=== PATIENT | male | born 1970 | race Caucasian/White ===

== ENCOUNTER 2020-11-12 17:07 | Emergency (ER) | payer BC ==
--- OUTSIDE RECORDS SUMMARY | 2020-11-12 17:11 | XMS REPORT | Continuity of Care Document ---
:1970 Author Organization [facility] t Address [address] [place] [address] Care Team Providers Name Role Phone Richar CALDERON Primary Care Physician Problems Condition Condition Condition Status Onset Resolution Last Treating Co mments Source Name Details Category Date Date Treatment Clinician Date Gastroesop Gastroesop Disease Active M ethodi hageal hageal 06-20 st reflux reflux 00:00: Hospita disease disease 00 l Dyspepsia Dyspepsia Disease Active [facility]osp[facility] 00 l Internal Internal Disease Active [facility] hemorrhoid hemorrhoid 06-20 st s s 00:00: Hospita 00 l Hematochez Hematochez Disease Active 2015-03 M ethodi ia ia 04-10 st 00:00: Hospita 00 l Dysphagia Dysphagia Disease Active 2015-03 [facility]10 [facility] 00:00: Hospita 00 l Allergies, Adverse Reactions, Alerts This patient has no known allergies or adverse reactions. Family History Family Member Diagnosis Comments Start Date Stop Date Source Natural father Alzheimer's disease [facility] Natural mother COPD Natural mother Hypertension [facility] Natural mother Throat cancer [facility] Social History Social Habit Start Date Stop Date Quantity Comments Source History of Snuff User [facility] Alcohol intake 2018-05-11 2018-05-11 Current drinker [facility] 00:[facility]00 [facility] Hospital (finding) Tobacco use and 2018-05-11 2018-05-11 Former user [facility] 00:[facility]:00 Hospital Alcohol Comment 2018-05-09 2018-05-[address] Sex Assigned At [birth year] [facility] 00:[facility]00 [facility] Smoking Status Start Date Stop Date Source Former smoker 2018-05-11 00:00:00 2018-05-11 00:00:00 [facility] Medications Ordered Filled Start Stop Current Ordering Indication Dosage Frequency Signature Comments Components Source Medication Medication Date Date Medication? Clinician (SIG) Name Name azelastine Yes 1{spray Q.5D 1 spray M ethodi (ASTELIN) 2 } into each st 137 mcg 02:59: nostril 2 Hospi ta (0.1 %) 20 (two) l nasal spray times a day. Use in each nostril as directed MV-MN/VITC/ Yes Take by [facility] ASBNA/GLU/L 2-[address] YS/HC124 02:59: needed. Hospit a ([place], 20 l ASCORBATE SODIUM, ORAL) Procedures This patient has no known procedures. Plan of Care Planned Activity Planned Date Details Comments Source Future Scheduled Test COVID-19 VACCINE (1) [code = COVID-19 VACCINE (1)] Future Scheduled Test Hepatitis C screening (procedure) [code = 076884927] Future Scheduled Test COLONOSCOPY SCREENING [code = COLONOSCOPY SCREENING] Future Scheduled Test SHINGLES VACCINES (#1) [code = SHINGLES VACCINES (#1)] Future Scheduled Test INFLUENZA VACCINE [code = INFLUENZA VACCINE] Encounters Start End Encounter Admission Attending Care Care Encounter Source Date/Time Date/Time Type Type Clinicians Facility Department ID 2020-10-31 2020-10-31 Outpatient [facility] [id number] [facility] Results This patient has no known results.
--- NOTE | 2020-11-12 19:07 | RAD REPORT ---
EXAM DESCRIPTION: RAD - Chest Single View - 11/12/2020 6:50 pm CLINICAL HISTORY: SOB, recent positive COVID diagnosis COMPARISON: None TECHNIQUE: AP portable chest image was obtained 11/12/2020 6:50 pm . FINDINGS: Lung parenchyma within range of normal. No COVID-19 pneumonia findings evident. Heart and vasculature are normal. No measurable pleural effusion and no pneumothorax. No acute bony abnormality seen. No acute aortic findings suspected. IMPRESSION: No acute cardiopulmonary process.
--- NOTE | 2020-11-12 19:57 | ER ---
Nurse's Notes [facility] Name: Jose Ortiz Age: 50 yrs Sex: Male : 1970 Arrival Date: 11/12/2020 Time: 17:10 Bed 25 Private MD: Max Maradiaga Diagnosis: SARS-associated coronavirus as the cause of diseases classified elsewhere Presentation: 11/12 18:08 Chief complaint: Patient states: "I called my doctor and told them I have been having a ss hard time breathing and a headache." Pt reports a positive COVID test on 11/03. Coronavirus screen: Client denies travel out of the [place] in the last 14 days. Ebola Screen: Patient denies exposure to infectious person. Patient denies travel to an Ebola-affected area in the 21 days before illness onset. Initial Sepsis Screen: Does the patient meet any 2 criteria? No. Patient's initial sepsis screen is negative. Does the patient have a suspected source of infection? No. Patient's initial sepsis screen is negative. Risk Assessment: Do you want to hurt yourself or someone else? Patient reports no desire to harm self or others. Onset of symptoms was October 2020. 18:08 Method Of Arrival: Ambulatory ss 18:08 Acuity: JODIE 4 ss Triage Assessment: 19:56 General: Appears in no apparent distress. Behavior is calm, cooperative, appropriate lh3 for age. Pain: Denies pain. Respiratory: Reports shortness of breath at rest Onset: The symptoms/episode began/occurred at an unknown time. the patient has moderate shortness of breath. Historical: - Allergies: 18:17 No Known Allergies; ss - Immunization history:: Client reports having NOT received the Covid vaccine. - Social history:: Smoking status: Patient denies any tobacco usage or history of. Screenin:57 Abuse screen: Denies threats or abuse. Nutritional screening: No deficits noted. lh3 Tuberculosis screening: No symptoms or risk factors identified. Fall Risk None identified. Assessment: 19:57 Reassessment: Patient appears in no apparent distress at this time. Cardiovascular: lh3 Rhythm is regular. Respiratory: Airway is patent Respiratory effort is even, unlabored, Breath sounds are clear. Vital Signs: 18:08 Pulse 70; Resp 16; Temp 97.8(TE); Pulse Ox 97% ; Weight 122.47 kg; Height 5 ft. 7 in. (170.18 cm); Pain 8/10; 19:56 BP 136 / 79; Pulse 68; Resp 18; Temp 98; Pulse Ox 98% ; lh3 18:08 Body Mass Index 42.29 (122.47 kg, 170.18 cm) ED Course: 17:10 Patient arrived in ED. mr 17:10 Max Maradiaga DO is Private Physician. mr 18:10 Triage completed. 18:17 Arm band placed on right wrist. 18:51 XRAY Chest (1 view) In Process Unspecified. EDMS 19:37 Jackie Maradiaga is Attending Physician. sp3 19:44 Radha Fonseca, RN is Primary Nurse. 3 19:57 Patient has correct armband on for positive identification. Bed in low position. Call 3 light in reach. 19:57 No provider procedures requiring assistance completed. Patient did not have IV access lh3 during this emergency room visit. Administered Medications: No medications were administered Outcome: 19:56 Discharge ordered by MD. 3 20:23 Discharged to home ambulatory. 3 20:23 Condition: stable 20:23 Discharge instructions given to patient, Instructed on discharge instructions, Demonstrated understanding of instructions, follow-up care. 20:23 Patient left the ED. 3 Signatures: Dispatcher [employer] [facility] Cherry Santos [place], RN RN Jackie Maradiaga sp3 Radha Fonseca, STU RN 3
--- NOTE | 2020-11-12 19:57 | EDPHYS ---
Physician Documentation [facility] Name: Jose Ortiz Age: 50 yrs Sex: Male : 1970 Arrival Date: 11/12/2020 Time: 17:10 Bed 25 Private MD: [facility] ED Physician Jackie Maradiaga HPI: 11/12 19:52 This 50 yrs old Male presents to ER via Ambulatory with complaints of sp3 Breathing Difficulty. 19:52 50-year-old male with COVID-19 diagnosed initially in early October with repeat testing sp3 done on the which still demonstrates positive result now comes in for continued mild difficulty breathing, generalized body aches, and fatigue. Patient was sent by his PCP for chest x-ray and general evaluation. Patient has not been vaccinated. No other symptoms including chest pain, neck pain, vomiting, diarrhea, fever, productive cough, syncope, near syncope, neuro symptoms, bleeding, rash, any other ROS at this time. Patient uses a CPAP machine at home and states that despite that he occasionally still has some breathing difficulty.. Historical: - Allergies: 18:17 No Known Allergies; ss - Immunization history:: Client reports having NOT received the Covid vaccine. - Social history:: Smoking status: Patient denies any tobacco usage or history of. ROS: 19:54 Eyes: Negative for injury, pain, redness, and discharge, ENT: Negative for injury, sp3 pain, and discharge, Neck: Negative for injury, pain, and swelling, Cardiovascular: Negative for chest pain, palpitations, and edema, Abdomen/GI: Negative for abdominal pain, nausea, vomiting, diarrhea, and constipation, Back: Negative for injury and pain, Skin: Negative for injury, rash, and discoloration, Neuro: Negative for headache, weakness, numbness, tingling, and seizure, Endocrine: Negative for neck swelling, polydipsia, polyuria, polyphagia, and marked weight changes, Hematologic/Lymphatic: Negative for swollen nodes, abnormal bleeding, and unusual bruising. 19:54 Constitutional: Positive for fatigue, Negative for chills, fever, poor PO intake, weight loss. 19:54 Respiratory: Positive for shortness of breath, Negative for cough, pleurisy, wheezing. 19:54 All other systems are negative. 19:54 All other systems are negative. Exam: 19:54 Constitutional: This is a well developed, well nourished patient who is awake, alert, sp3 and in no acute distress. Head/Face: Normocephalic, atraumatic. Eyes: Pupils equal round and reactive to light, extra-ocular motions intact. Lids and lashes normal. Conjunctiva and sclera are non-icteric and not injected. Cornea within normal limits. Periorbital areas with no swelling, redness, or edema. ENT: Nares patent. No nasal discharge, no septal abnormalities noted. External auditory canals are clear. Oropharynx with no redness, swelling, or masses, exudates, or evidence of obstruction, uvula midline. Mucous membranes moist. Neck: Trachea midline, no thyromegaly or masses palpated, and no cervical lymphadenopathy. Supple, full range of motion without nuchal rigidity, or vertebral point tenderness. No Meningismus. Chest/axilla: Normal chest wall appearance and motion. Nontender with no deformity. No lesions are appreciated. Cardiovascular: Regular rate and rhythm with a normal S1 and S2. No gallops, murmurs, or rubs. Normal PMI, no JVD. No pulse deficits. Respiratory: Lungs have equal breath sounds bilaterally, clear to auscultation and percussion. No rales, rhonchi or wheezes noted. No increased work of breathing, no retractions or nasal flaring. Abdomen/GI: Soft, non-tender, with normal bowel sounds. No distension or tympany. No guarding or rebound. No evidence of tenderness throughout. Back: No spinal tenderness. No costovertebral tenderness. Full range of motion. MS/ Extremity: Pulses equal, no cyanosis. Neurovascular intact. Full, normal range of motion. Neuro: Awake and alert, GCS 15, oriented to person, place, time, and situation. Cranial nerves II-XII grossly intact. Motor strength 5/5 in all extremities. Sensory grossly intact. Cerebellar exam normal. Normal gait. Psych: Awake, alert, with orientation to person, place and time. Behavior, mood, and affect are within normal limits. Vital Signs: 18:08 Pulse 70; Resp 16; Temp 97.8(TE); Pulse Ox 97% ; Weight 122.47 kg; Height 5 ft. 7 in. ss (170.18 cm); Pain 8/10; 19:56 BP 136 / 79; Pulse 68; Resp 18; Temp 98; Pulse Ox 98% ; lh3 18:08 Body Mass Index 42.29 (122.47 kg, 170.18 cm) ss MDM: 19:52 Patient medically screened. sp3 19:55 ED course: 50-year-old male with continued symptoms of COVID-19. Patient's chest x-ray sp3 demonstrates no acute abnormality. Pulse oxygenation level is 97% on room air and remainder of vital signs are normal. No further work-up is necessary and I reassured patient on continuing to stay isolated and monitoring his own symptoms. He is to follow-up with his primary care physician for any further continued deterioration and/or symptoms and he knows to return here for any further emergencies. Patient is stable for discharge at this time.. 11/12 18:18 Order name: XRAY Chest (1 view); Complete Time: 19:38 ss Administered Medications: No medications were administered Disposition Summary: 11/12/20 19:56 Discharge Ordered Location: Home sp3 Condition: Stable sp3 Diagnosis - SARS-associated coronavirus as the cause of diseases classified elsewhere sp3 Followup: sp3 - With: Private Physician - When: - Reason: Re-evaluation by your physician Discharge Instructions: - Discharge Summary Sheet sp3 - COVID-19 sp3 - 10 Things You Can Do to Manage Your COVID-19 Symptoms at Home - [facility] sp3 Forms: - Medication Reconciliation Form sp3 - Thank You Letter sp3 - Antibiotic Education sp3 - Prescription Opioid Use sp3 Signatures: Dispatcher [employer] Iza Guerra RN RN Jackie Maradiaga sp3
[2020-11-12 20:41] VITALS: BP 136/79; TEMP 98; O2SAT 98
== END 2020-11-12 20:23 | disposition home or self-care (01) ==
LOC: ER 17:07
DX: U07.1 COVID-19 (principal)
CPT/HCPCS: 71045; 99283

== ENCOUNTER 2021-06-20 06:36 | Emergency (ER) | payer BC ==
--- OUTSIDE RECORDS SUMMARY | 2021-06-20 06:40 | XMS REPORT | Continuity of Care Document ---
:1970 Author Organization [facility] t Address [address] [place] [address] Care Team Providers Name Role Phone Richar CALDERON Primary Care Physician Nereyda Maradiaga Attending Clinician Unavailable Problems Condition Condition Condition Status Onset Resolution [...] Comments Start Date Stop Date Source Natural mother COPD [facility] Natural mother Hypertension [facility] Natural mother Throat cancer [facility] Natural father Alzheimer's disease [facility] Social History Social Habit Start Date Stop Date Quantity Comments Source History of Snuff User [facility] tobacco use [facility] Tobacco use and 2018-05-11 2018-05-11 Former user [facility] exposure 00:00[facility]:00:00 Hospital Alcohol intake 2018-05-11 2018-05-11 Current drinker [facility] 00:[facility]:00 of alcohol Hospital (finding) Alcohol Comment 2018-05-09 2018-05-[address] [facility] 00:[facility]00 Hospital Sex Assigned At [birth year] [facility] 00:00:[facility]:00 Hospital Smoking Status Start Date Stop Date Source Former smoker 2018-05-11 00:00:00 2018-05-11 00:00:00 [facility] Medications Ordered Filled Start Stop Current Ordering Indication Dosage Frequency Signature Comments Components Source Medication Medication Date Date Medication? Clinician (SIG) Name Name JANINE-MN/VITC/ Yes Take by [facility] ASBNA/GLU/L 2-[address] YS/HC124 02:59: needed. Hospit a ([place], 20 l ASCORBATE SODIUM, ORAL) azelastine Yes 1{spray Q.5D 1 spray M ethodi (ASTELIN) 05-10 } into each st 137 mcg 02:59: nostril 2 Hospi ta (0.1 %) 20 (two) l nasal spray times a day. Use in each nostril as directed Procedures This patient has no known procedures. Plan of Care Planned Activity Planned Date Details Comments Source Future Scheduled Test COVID-19 VACCINE (1) [facility] [code = COVID-19 VACCINE (1)] Future Scheduled Test Hepatitis C screening [facility] (procedure) [code = 263933979] Future Scheduled Test COLONOSCOPY SCREENING [facility] [code = COLONOSCOPY SCREENING] Future Scheduled Test SHINGLES VACCINES (#1) [facility] [code = SHINGLES VACCINES (#1)] Future Scheduled Test INFLUENZA VACCINE [code [facility] = INFLUENZA VACCINE] Encounters Start End Encounter Admission Attending Care Care Encounter Source Date/Time Date/Time Type Type Clinicians Facility Department ID 2021-04-22 Outpatient Maradiaga, [facility] [id number] [facility] 14:21:21 Max [id number] [facility] 2021-04-22 Outpatient Maradiaga, [facility] [id number] [facility] [address] 14:04:30 Max [id number] [facility] 2021-04-22 Outpatient Maradiaga, [facility] [id number] 13:36:15 [facility] 2021-04-22 Outpatient Maradiaga, [facility] [id number] 13:35:29 [facility] 2021-04-22 Outpatient Maradiaga, [facility] [id number] 13:34:33 [facility] 2021-04-22 Outpatient Maradiaga, [facility] 13[facility]32:49 [facility] 2021-05-28 2021-05-28 ambulatory [facility] [id number] [facility] 2021-05-27 2021-05-27 ambulatory [facility] [id number] [facility] 2021-05-27 2021-05-27 ambulatory [facility] [id number] [facility] 2021-02-27 2021-02-27 ambulatory [facility] [id number] [facility] 2021-02-27 2021-02-27 ambulatory [facility] [id number] [facility] 2021-01-19 2021-01-19 Outpatient [facility] [id number] [facility] 2020-10-31 2020-10-31 Outpatient [facility] [id number] [facility] Results This patient has no known results.
[2021-06-20] MEDS ORDERED: GLUCAGON 1 MG/VIAL ONE ×2 (07:31→08:17)
[2021-06-20] MEDS ORDERED: NA CHLORIDE 0.9% 500 ML ONE (07:31)
[2021-06-20 08:58] LABS: Absolute Lymphocytes (CBC) 1.8 K/uL (0.7-4.9); Hematocrit 49.6 % (39.6-49.0); Lymphocytes % 18.6 % (15.3-44.8); MPV 8.4 fL (7.6-11.3); RBC Red Blood Cell Count 5.57 M/uL (4.33-5.43)
--- NOTE | 2021-06-20 09:13 | RAD REPORT ---
EXAM DESCRIPTION: RAD - Chest Pa And Lat (2 Views) - 06/20/2021 8:44 am CLINICAL HISTORY: Dysphagia COMPARISON: <Comparisons> FINDINGS: Lines: None. Lungs: No evidence of edema or pneumonia. Pleural: No significant pleural effusions or pneumothorax. Cardiac: The heart size is within normal limits. Bones: No acute fractures. Other: IMPRESSION: No acute cardiopulmonary disease.
--- NOTE | 2021-06-20 09:36 | EDPHYS ---
Physician Documentation [facility] Name: Jose Ortiz Age: 50 yrs Sex: Male : 1970 Arrival Date: 06/20/2021 Time: 06:40 Bed 4 Private MD: ED Physician Shabbir Garcia HPI: 06/20 07:01 This 50 yrs old Male presents to ER via Ambulatory with complaints of Foreign Body In pm1 Throat. 07:01 The patient presents with difficulty swallowing food and water. Onset: The pm1 symptoms/episode began/occurred last night, at 20:00. Associated signs and symptoms: Pertinent negatives: chest pain, shortness of breath. Modifying factors: The symptoms are alleviated by nothing, the symptoms are aggravated by drinking water. The patient has experienced similar episodes in the past, a few times, Has had endoscopy in the past 2014 for the same issue that did not find any abnormalities. The patient has not recently seen a physician. Patient with onset of difficulty swallowing food and water since 1999 last night. Started after he ate pork for dinner. Patient has difficulty in the past with meats and tries to cut it into small pieces or chew his meat very well prior to swallowing. Since last night he reports difficulty with drinking water, since it feels like it is stuck there and causes him to vomit. Historical: - Allergies: 06:59 No Known Allergies; bb - Home Meds: 06:59 anastrozole oral [Active]; clomiphene citrate oral [Active]; bb - PMHx: 06:59 low testosterone; bb - PSHx: 06:59 Cholecystectomy; bb - Immunization history:: Client reports having NOT received the Covid vaccine. - Social history:: Smoking status: Patient denies any tobacco usage or history of. ROS: 07:01 Constitutional: Negative for fever, chills, and weight loss, Cardiovascular: Negative pm1 for chest pain, palpitations, and edema, Respiratory: Negative for shortness of breath, cough, wheezing, and pleuritic chest pain. 07:01 Back: Negative for injury and pain, MS/Extremity: Negative for injury and deformity, Skin: Negative for injury, rash, and discoloration, Neuro: Negative for headache, weakness, numbness, tingling, and seizure. 07:01 ENT: Positive for difficulty swallowing, foreign body sensation, Negative for difficulty handling secretions. 07:01 Abdomen/GI: Positive for vomiting, with PO intake of fluids, Negative for abdominal pain. 07:01 All other systems are negative. Exam: 07:01 Constitutional: This is a well developed, well nourished patient who is awake, alert, pm1 and in no acute distress. Head/Face: Normocephalic, atraumatic. 07:01 Back: No spinal tenderness. No costovertebral tenderness. Full range of motion. Skin: Warm, dry with normal turgor. Normal color with no rashes, no lesions, and no evidence of cellulitis. MS/ Extremity: Pulses equal, no cyanosis. Neurovascular intact. Full, normal range of motion. 07:01 Eyes: Exam is negative for acute changes, Extraocular movements: intact throughout, Conjunctiva: no acute changes, no injection, Sclera: no acute changes, icterus, is not appreciated. 07:01 ENT: Exam is negative for acute changes, Mouth: no acute changes, Lips: normal, moist, Oral mucosa: normal, pink and intact, moist, Posterior pharynx: no acute changes, Airway: no evidence of obstruction, patent. 07:01 Neck: Exam negative for acute changes, ROM/movement: no acute changes. 07:01 Chest/axilla: Inspection: no acute changes, Palpation: no acute changes. 07:01 Cardiovascular: Exam negative for acute changes, Rate: normal, Rhythm: regular, Pulses: no pulse deficits are appreciated, Heart sounds: normal. 07:01 Respiratory: Exam negative for acute changes, the patient does not display signs of respiratory distress, Respirations: no acute changes, Breath sounds: are clear throughout, no acute changes. 07:01 Abdomen/GI: Inspection: obese Palpation: abdomen is soft and non-tender, in all quadrants. 07:01 Neuro: Exam negative for acute changes, Orientation: is normal, Mentation: is normal, Motor: is normal, moves all fours. Vital Signs: 06:56 BP 141 / 89; Pulse 69; Resp 16 S; Temp 98.9(O); Pulse Ox 93% on R/A; Weight 127.01 kg bb (R); Height 5 ft. 7 in. (170.18 cm) (R); Pain 8/10; 08:06 BP 100 / 56; Pulse 78; Resp 18; Pulse Ox 99% ; Pain 3/10; jh6 09:00 BP 96 / 60; Pulse 70; Resp 17; Pulse Ox 100% ; Pain 2/10; jh6 10:17 BP 98 / 64; Pulse 74; Resp 18; Pulse Ox 99% ; Pain 3/10; jh6 11:00 BP 134 / 79; Pulse 50; Resp 17; Pulse Ox 100% ; Pain 0/10; jh6 12:30 BP 123 / 70; Pulse 48; Resp 17; Temp 98.6(O); Pulse Ox 100% ; Pain 2/10; jh6 12:50 BP 118 / 57; Pulse 50; Resp 18; Pulse Ox 99% ; Pain 2/10; jh6 06:56 Body Mass Index 43.85 (127.01 kg, 170.18 cm) bb MDM: 06:52 Patient medically screened. pm1 08:40 Data reviewed: vital signs. Data interpreted: Pulse oximetry: on room air is 99 %. pm1 Interpretation: normal. 09:24 Physician consultation: Tapan Clark MD He is not on-call. No answer. Left message to pm1 see if he is available to help . 09:26 Physician consultation: Eloy Hager MD He is not on-call. Phone is not accepting any pm1 phone calls at the moment . 12:00 Physician consultation: MD GROVER was contacted at 12:01, regarding regarding transfer, pm1 patient's condition, and will see patient as consult, admit to the hospitalist. 06/20 08:35 Order name: CBC with Diff; Complete Time: 09:11 pm1 06/20 08:35 Order name: CMP; Complete Time: 09:50 pm1 06/20 08:06 Order name: Chest Pa And Lat (2 Views) XRAY; Complete Time: 09:16 pm1 06/20 09:04 Order name: COVID-19 SARS RT PCR (Document "Date of Onset" if Symptomatic); Complete iw Time: 10:02 06/20 06:55 Order name: IV Saline Lock; Complete Time: 07:37 pm1 06/20 12:07 Order name: Vital Signs pm1 Administered Medications: 07:37 Drug: Glucagon 1 mg Route: IVP; Site: left antecubital; [facility] 08:17 Follow up: Response: No change in condition [facility] 10:20 Follow up: Response: No change in condition [facility] 10:20 Follow up: Response: No change in condition [facility] 07:37 Drug: NS 0.9% 500 ml Route: IV; Rate: bolus; Site: left antecubital; [facility] 08:17 Drug: GlucaGen (glucagon) 1 mg Route: IVP; Site: left antecubital; [facility] 11:10 Drug: NS 0.9% 1000 ml Route: IV; Rate: 125 ml/hr; Site: left antecubital; [facility] 12:07 Drug: Magnesium Sulfate 1 grams Route: IVPB; Infused Over: 1 hrs; Site: left [facility] antecubital; Disposition Summary: 06/20/21 09:35 Transfer Ordered Transfer Location: Other Acute Care Facility pm1 Reason: Higher level of care pm1 Condition: Stable pm1 Problem: new pm1 Symptoms: have improved pm1 Accepting Physician: (06/20/21 13:37) jh6 Diagnosis - Dysphagia - foreign body in throat - food bolus pm1 Forms: - Medication Reconciliation Form pm1 - SBAR form pm1 Addendum: 06/23/2021 22:01 Co-signature as Attending Physician, Shabbir Garcia DO I was immediately available on-site m s3 in the Emergency Department for consultation in the care of the patient.. Signatures: Dispatcher [employer] Edda Crowley RN RN bb Case Jacob, MATERIAL MOVER MATERIAL MOVER pm1 Shabbir Garcia DO DO ms3 Jazzmine Ashton RN RN jh6 Corrections: (The following items were deleted from the chart) 06/20 09:28 09:24 Physician consultation: Tapan Clark MD He is not on-call. Left message to see pm1 if he is available to help , pm1 10:03 07:01 The patient has experienced similar episodes in the past, a few times, Has had pm1 endoscopy in the past for the same issue that did not find any abnormalities, pm1 13:37 09:35 pm1 jh6
--- NOTE | 2021-06-20 09:36 | ER ---
Nurse's Notes [facility] Name: Jose Ortiz Age: 50 yrs Sex: Male : 1970 Arrival Date: 06/20/2021 Time: 06:40 Bed 4 Private MD: Diagnosis: Dysphagia - foreign body in throat - food bolus Presentation: 06/20 06:56 Chief complaint: Patient states: he feels like he has food stuck in his throat since bb eating pork last night around 1999 cannot swallow anything without vomiting. Coronavirus screen: At this time, the client does not indicate any symptoms associated with coronavirus-19. Ebola Screen: No symptoms or risks identified at this time. Initial Sepsis Screen: Does the patient meet any 2 criteria? No. Patient's initial sepsis screen is negative. Does the patient have a suspected source of infection? No. Patient's initial sepsis screen is negative. Risk Assessment: Do you want to hurt yourself or someone else? Patient reports no desire to harm self or others. Onset of symptoms was June 19, 2021. 06:56 Method Of Arrival: Ambulatory 06:56 Acuity: JODIE 2 bb 07:01 Note pt has had similar symptoms in the past but did not follow-up. Triage Assessment: 07:10 General: Behavior is calm, cooperative. [facility] Historical: - Allergies: 06:59 No Known Allergies; bb - Home Meds: 06:59 anastrozole oral [Active]; clomiphene citrate oral [Active]; bb - PMHx: 06:59 low testosterone; bb - PSHx: 06:59 Cholecystectomy; bb - Immunization history:: Client reports having NOT received the Covid vaccine. - Social history:: Smoking status: Patient denies any tobacco usage or history of. Screenin:38 Abuse screen: Denies threats or abuse. Nutritional screening: No deficits noted. 6 Tuberculosis screening: No symptoms or risk factors identified. Fall Risk None identified. Assessment: 07:10 General: Appears comfortable, well developed. Pain: Complains of pain in thyroid 6 cartilage and suprasternal notch Pain currently is 3 out of 10 on a pain scale. 08:06 Reassessment: pt after receiving glucagon was able to drink small amount of water 6 without vomiting. 09:00 Reassessment: No changes from previously documented assessment. Patient and/or family jh6 updated on plan of care and expected duration. Pain level reassessed. attempted to drink small amount of carbonated soda and was not able to pass fluids or food bolus. pt having no resp distress and is able to speak in complete sentences. PA made aware of failed treatments. 09:00 Pain: Complains of pain in suprasternal notch Pain currently is 3 out of 10 on a pain 6 scale. 10:00 Reassessment: No changes from previously documented assessment. not vomiting but has jh6 not attempted to take po fuilds. 12:08 Reassessment: Patient and/or family updated on plan of care and expected duration. Pain jh6 level reassessed. Patient is alert, oriented x 3, equal unlabored respirations, skin warm/dry/pink. Pain: Complains of pain in suprasternal notch Pain currently is 3 out of 10 on a pain scale. 12:30 General: attempted to call reports to transferring facility but placed on hold for over jh6 10 min. 13:32 Reassessment: No changes from previously documented assessment. meds completed and able jh6 to speak in complete sentences without respiratory difficulty. Pt attempted to drink small amount of water but stated that he can still food in throat. General: Appears in no apparent distress. 13:36 Reassessment: spoke with Tanja at [facility]. [facility] Vital Signs: 06:56 BP 141 / 89; Pulse 69; Resp 16 S; Temp 98.9(O); Pulse Ox 93% on R/A; Weight 127.01 kg bb (R); Height 5 ft. 7 in. (170.18 cm) (R); Pain 8/10; 08:06 BP 100 / 56; Pulse 78; Resp 18; Pulse Ox 99% ; Pain 3/10; jh6 09:00 BP 96 / 60; Pulse 70; Resp 17; Pulse Ox 100% ; Pain 2/10; jh6 10:17 BP 98 / 64; Pulse 74; Resp 18; Pulse Ox 99% ; Pain 3/10; jh6 11:00 BP 134 / 79; Pulse 50; Resp 17; Pulse Ox 100% ; Pain 0/10; jh6 12:30 BP 123 / 70; Pulse 48; Resp 17; Temp 98.6(O); Pulse Ox 100% ; Pain 2/10; jh6 12:50 BP 118 / 57; Pulse 50; Resp 18; Pulse Ox 99% ; Pain 2/10; jh6 06:56 Body Mass Index 43.85 (127.01 kg, 170.18 cm) ED Course: 06:40 Patient arrived in ED. kc5 06:45 Case Jacob NP is PHCP. pm1 06:45 Shabbir Garcia DO is Attending Physician. pm1 06:49 Hina Malone, STU is Primary Nurse. sm5 06:59 Triage completed. bb 06:59 Arm band placed on Patient placed in an exam room, on a stretcher, on pulse oximetry. bb 07:10 Call light in reach. Side rails up X 1. jh6 07:38 Inserted saline lock: 20 gauge in left antecubital area, using aseptic technique. jh6 08:43 X-ray completed. Patient tolerated procedure well. Patient moved back from radiology. 1 08:46 Chest Pa And Lat (2 Views) XRAY In Process Unspecified. EDMS 09:37 initiated a transfer with Lizz from the [facility] transfer capulin at the request of the eb patient. 09:43 Per Lizz [facility] Bunch and [facility] Rory will have to decline due to being at capacity/ eb She will try [facility]. 10:04 per Lizz from the [facility] center Dr. Perla the emergency room doctor at [facility] will accept the patient but there is a mix up with the examination proctor schedule there and is unsure who GI covering is and if GI accepts he will take it. 10:41 Lizz from the [facility] transfer capulin called to ask for an extension she is still waiting eb on GI from [facility]. 10:50 per Lizz from the [facility] not have GI examination proctor eb and will have to decline the patient in transfer. 10:53 initiated a transfer with Eliza Braga Rn from the [facility]. eb 11:56 connected the GI examination proctor for [facility] with [facility] for patient transfer eb consultation. 12:[address] Rao the hospitalist examination proctor for [facility] with [facility] for eb patient transfer consultation. 12:06 administrative approval given by Eliza Braga Rn/ patient has been accepted to [facility] bed 1651/ Dr. Rao has accepted the patient in transfer/ report to be called to [phone]. 13:35 No provider procedures requiring assistance completed. 6 Administered Medications: 07:37 Drug: Glucagon 1 mg Route: IVP; Site: left antecubital; 6 08:17 Follow up: Response: No change in condition 6 10:20 Follow up: Response: No change in condition 6 10:20 Follow up: Response: No change in condition 6 07:37 Drug: NS 0.9% 500 ml Route: IV; Rate: bolus; Site: left antecubital; 6 08:17 Drug: GlucaGen (glucagon) 1 mg Route: IVP; Site: left antecubital; 6 11:10 Drug: NS 0.9% 1000 ml Route: IV; Rate: 125 ml/hr; Site: left antecubital; 6 12:07 Drug: Magnesium Sulfate 1 grams Route: IVPB; Infused Over: 1 hrs; Site: left [facility] antecubital; Outcome: 09:35 ER care complete, transfer ordered by . pm1 13:35 Transferred by ground EMS Note: [facility] 13:35 Condition: stable 13:35 Instructed on the need for transfer. 13:37 Patient left the ED. [facility] Signatures: Dispatcher [employer] EDMS Isabel Rivera 1 Edda Morales RN RN bb Case Jacob NP DEPUTY DIRECTOR OF PUBLIC WORKS pm1 Laura Burgos Jennifer RN RN 6 Rubina Sotomayor 5 Hina Malone RN RN sm5 Corrections: (The following items were deleted from the chart) 08:10 08:04 General: Appears comfortable, well developed, [facility] 08:10 08:04 Pain: Complains of pain in thyroid cartilage and suprasternal notch Pain [facility] currently is 3 out of 10 on a pain scale. 6 10:48 09:37 initiated a transfer with Lizz from the [facility] transfer center. eb eb
[2021-06-20 09:40] LABS: Albumin 3.9 g/dL (3.4-5.0); Bilirubin Total 0.5 mg/dL (0.2-1.0); Protein, Total 7.6 g/dL (6.4-8.2)
[2021-06-20 09:48] LABS: Potassium 4.2 mmol/L (3.5-5.1)
[2021-06-20] MEDS ORDERED: NA CHLORIDE 0.9% 1,000 ML ONE (10:41)
[2021-06-20] MEDS ORDERED: MAGNESIUM SULFATE 1 gm IVPB 1 GM/100 ML BAG IV ONE (12:04)
[2021-06-20 14:08] VITALS: TEMP 98.6
[2021-06-20 14:09] VITALS: BP 118/57; O2SAT 99
== END 2021-06-20 13:37 ==
LOC: ER 06:36
DX: R09.89 Other specified symptoms and signs involving the circulatory and respiratory systems (principal); T17.228A Food in pharynx causing other injury, initial encounter; Z20.822 Contact with and (suspected) exposure to COVID-19
CPT/HCPCS: 85025; 36415; 80053; 71046; 96375; 96374; 99285; U0003; J1610 ×2; J3475; J7040; J7030